=== PATIENT | male | born 1935 | race Caucasian/White ===

== ENCOUNTER 2019-02-10 11:25 | Inpatient (IN) | payer MEDICARE ==
[2019-02-10] MEDS ORDERED: Atropine Sulfate 1 mg/10 ml Syringe ONE (11:31)
--- NOTE | 2019-02-10 11:47 | RAD ---
EXAM: Single view of the chest HISTORY: Chest pain COMPARISON: None FINDINGS: Single view of the chest shows a normal sized cardiomediastinal silhouette. There is eleva tion of the right hemidiaphragm. Atherosclerotic calcifications are seen in the aorta. There is no evidence of consolidation, mass, or pleural effusion. The patient has bilateral shoulder arthroplasti es. IMPRESSION: No evidence of acute cardiopulmonary disease
[2019-02-10] MEDS ORDERED: Meclizine HCl 25 MG TAB ONE (11:48)
[2019-02-10] MEDS ORDERED: DOPamine 400 MG/D5W 250 ML 250 ML IVPB SCH (12:00)
[2019-02-10 12:04] LABS: #Eosinphils 0.2 thou/uL (0.0-0.7); #Lymphocytes 0.4 thou/uL (1.20-3.40); #Monocytes 0.3 thou/uL (0.11-0.59); #Neutrophils 2.3 thou/uL (1.40-6.50); %Basophils 0.2 % (0.0-1.0); %Eosinophils 5.6 % (0.0-10.0); %Monocytes 10.1 % (0.0-10.0); %Neutrophils 71.1 % (42.0-75.0); Hemoglobin 7.7 g/dL (14.0-18.0); Mean Corpuscular HGB CONC 31.3 g/dL (32.0-36.0); Mean Corpuscular Hemoglobin 24.5 pg (27.0-31.0); Mean Corpuscular Volume 78.1 fL (78.0-98.0); Mean Platelet Volume 8.6 fL (7.4-10.4); Platelet Count 131 thou/uL (130-400); RBC Distribution Width 15.9 % (11.5-14.5); Red Blood Cell (RBC) Count 3.15 mill/uL (4.70-6.10); White Blood Cell (WBC) Count 3.2 thou/uL (4.8-10.8)
[2019-02-10 12:27] LABS: Acetaminophen Less than 6.0 mcg/mL (10.0-30.0); Alcohol Less than 10 mg/dL (Less than 10); Salicylate Less than 8.0 mg/dL (15.0-30.0)
[2019-02-10 12:28] LABS: ALT (SGPT) 19 U/L (8-55); AST (SGOT) 28 U/L (5-34); Albumin 3.4 g/dL (3.4-4.8); Alkaline Phosphatase 88 U/L (40-150); Anion Gap 12 mmol/L (10-20); BUN (Urea Nitrogen) 25 mg/dL (8.4-25.7); Bilirubin, Total 0.4 mg/dL (0.2-1.2); Calc. Creatinine Clearance 0 mL/min (70-130); Calcium 9.8 mg/dL (7.8-10.44); Carbon Dioxide 26 mmol/L (23-31); Chloride 100 mmol/L (98-107); Estimated GFR-MDRD 37; Globulin 3.7 g/dL (2.4-3.5); Glucose 148 mg/dL (83-110); Protein, Total 7.1 g/dL (5.8-8.1); Sodium 133 mmol/L (136-145)
[2019-02-10 12:50] LABS: CKMB 2.8 ng/mL (0-6.6)
[2019-02-10] MEDS ORDERED: DOPamine 400 MG/D5W 250 ML 250 ML ONE (13:08)
[2019-02-10 13:09] LABS: INR-International Normal Ratio 1.1; PTT 29.3 SEC (22.9-36.1); Prothrombin Time 14.5 SEC (12.0-14.7)
--- NOTE | 2019-02-10 16:00 | PDOC.FPRHP ---
- History of Present Illness Chief Complaint: Dizziness History of Present Illness: This is an 83 yo male with a pmh of chronic atrial fibrillation, MDD, HTN, hypothyroidism, CKD III, rheumatic fever with heart murmur, COPD, Hepatitis C with a cc of dizziness who presents from correction. He states that has been dizzy for . He reports feeling dizzy this morning and checked his HR and found that it was in the 40s he denies having a heart rate like this before. In addition, he reports an associated SOB that has been going on for the last few weeks. He denies falling, LOC, nausea, vomiting, or chest pain. He reports just moving from [place] and states that he was receiving chemo and radiation for throat cancer. ED Course: aspirin, meclizine 25mg, 1L ns, Atropine 2 mg - Allergies/Adverse Reactions Allergies Allergy/AdvReac Type Severity Reaction Status Date / Time No Known Allergies Allergy Unverified 02/10/19 11:49 - Home Medications Medication Instructions Recorded Confirmed Type Albuterol Sulfate [Albuterol 2.5 mg NEB Q6H PRN 02/10/19 02/10/19 History Sulfate Neb] Allopurinol 100 mg PO DAILY 02/10/19 02/10/19 History Amiodarone [Cordarone] 200 mg PO DAILY 02/10/19 02/10/19 History Atorvastatin Calcium 20 mg PO DAILY 02/10/19 02/10/19 History Finasteride 5 mg PO DAILY 02/10/19 02/10/19 History Furosemide 40 mg PO DAILY 02/10/19 02/10/19 History Levothyroxine Sodium 75 mcg PO DAILY 02/10/19 02/10/19 History Polyethylene Glycol 3350 [Miralax] 17 gm PO DAILY 02/10/19 02/10/19 History Tamsulosin HCl 0.4 mg PO HS 02/10/19 02/10/19 History traMADol HCl [Tramadol HCl] 50 mg PO Q6HR 02/10/19 02/10/19 History - History PMHx: chronic atrial fibrillation, MDD, HTN, hypothyroidism, CKD III, rheumatic fever with heart murmur, COPD, Hepatitis C, throat cancer s/p radiation PSHx: Shoulder surgery FHx: Noncontributory Social: Denies JORDAN - Review of Systems General: reports: fatigue. denies: fever/chills, weight/appetite/sleep changes , night sweats Eyes: reports: other (double vision, chronic). denies: eye pain, vision changes ENT: reports: nasal congestion, rhinorrhea Respiratory: reports: shortness of breath, exercise intolerance. denies: cough , congestion Cardiovascular: denies: chest pain, palpitation, edema, orthopnea Gastrointestinal: reports: constipation. denies: nausea, vomiting, diarrhea, abdominal pain, GI bleeding Genitourinary: reports: other (7x nocturia). denies: incontinence, dysuria Skin: denies: rashes, lesions Musculoskeletal: reports: pain (back), arthritis/arthralgias (shoulders) Neurological: reports: weakness. denies: numbness, syncope, seizure Psychological: denies: anxiety, depression - Vital signs BP: 163/59 HR: 47 RR: 13 Tmax: 97.5 Pox: 100% on ra Wt: 72 kg - Physical Exam Constitutional: NAD, awake, alert and oriented, well developed HEENT: normocephalic and atraumatic, PERRLA, EOMI, MMM, other (poor dentition) Neck: supple, FROM, trachea midline, no JVD, no bruits Chest: no-tender to palpation, no lesions Heart: normal S1/S2 -Heart: Regular rhythm, bradycardic, systolic murmur best heard at the right sternal border Lungs: no respiratory distress, good air movement, no wheezing -Lungs: Basilar crackles bilaterally Abdomen: soft, non-tender, bowel sounds present, no masses/distention Musculoskeletal: normal structure, normal tone, ROM grossly normal Neurological: CN II-XII intact Skin: capillary refill <2 seconds, no jaundice Heme/Lymphatic: no unusual bruising or bleeding, no purpura Psychiatric: normal mood and affect, good judgment and insight FMR H&P: Results - Labs Result Diagrams: 02/10/19 11:49 02/10/19 11:49 Lab results: WBC 3.2 thou/uL (4.8-10.8) L 02/10/19 11:49 Hgb 7.7 g/dL (14.0-18.0) L 02/10/19 11:49 Hct 24.6 % (42.0-52.0) L 02/10/19 11:49 MCV 78.1 fL (78.0-98.0) 02/10/19 11:49 Plt Count 131 thou/uL (130-400) 02/10/19 11:49 Neutrophils % 71.1 % (42.0-75.0) 02/10/19 11:49 Sodium 133 mmol/L (136-145) L 02/10/19 11:49 Potassium 5.0 mmol/L (3.5-5.1) 02/10/19 11:49 Chloride 100 mmol/L (98-107) 02/10/19 11:49 Carbon Dioxide 26 mmol/L (23-31) 02/10/19 11:49 BUN 25 mg/dL (8.4-25.7) 02/10/19 11:49 Creatinine 1.78 mg/dL (0.7-1.3) H 02/10/19 11:49 Glucose 148 mg/dL (83-110) H 02/10/19 11:49 Calcium 9.8 mg/dL (7.8-10.44) 02/10/19 11:49 Total Bilirubin 0.4 mg/dL (0.2-1.2) 02/10/19 11:49 AST 28 U/L (5-34) 02/10/19 11:49 ALT 19 U/L (8-55) 02/10/19 11:49 Alkaline Phosphatase 88 U/L (40-150) 02/10/19 11:49 CK-MB (CK-2) 2.8 ng/mL (0-6.6) 02/10/19 11:49 B-Natriuretic Peptide 1149.8 pg/mL (0-100) H 02/10/19 11:49 Serum Total Protein 7.1 g/dL (5.8-8.1) 02/10/19 11:49 Albumin 3.4 g/dL (3.4-4.8) 02/10/19 11:49 - Radiology Interpretation Chest x-ray Status: report reviewed by me (No evidence of acute cardiopulmonary disease) FMR H&P: A/P - Problem List (1) COPD (chronic obstructive pulmonary disease) Current Visit: Yes Status: Acute (2) CKD (chronic kidney disease) Current Visit: Yes Status: Acute Code(s): N18.9 - CHRONIC KIDNEY DISEASE, UNSPECIFIED (3) HTN (hypertension) Current Visit: Yes Status: Acute Code(s): I10 - ESSENTIAL (PRIMARY) HYPERTENSION (4) MDD (major depressive disorder) Current Visit: Yes Status: Acute Code(s): F32.9 - MAJOR DEPRESSIVE DISORDER , SINGLE EPISODE, UNSPECIFIED (5) Bradycardia Current Visit: Yes Status: Acute Code(s): R00.1 - BRADYCARDIA, UNSPECIFIED - Plan This is a 83 yo male with a pmh of chronic atrial fibrillation, MDD, HTN, hypothyroidism, CKD III, rheumatic fever with heart murmur, COPD, Hepatitis C Bradycardia likely 2/2 sick sinus syndrome -Admit to tele obs -s/p 2mg of atropine -Echo in the morning -Consult cardiology in the morning SOB, presumptive aortic stenosis -Echo in the morning -Cardiology consult CHF, unspecified -Echo -Continue home meds COPD -Does not appear to be exacerbated -continue home meds Afib -Continue home amiodarone CKD 3 -Cr 1.78 -Appears at baseline from previous Cr of 1.7 Asymptomatic anemia -Hgb 7.7 -FOBT negative -Repeat in AM HTN -No current medications Hx of throat cancer -No dysphagia Hep C -Uncertain current status, pending more clinical information in the mornin -Consider Hep C labs BPH -Continue home meds, post void residual and straight cath as needed Code: DNAR Prophylaxis: SCDs Family: none at bedside Diet: HH Fluids: SL Disposition: DC in 2-3 days PCP: Dr. Odom FMR H&P: Upper Level - Pertinent history Pt is an 83 y/o M. CC Dizziness from correction. Started this AM. Associated SOB this morning during radiology. Denies chest pain, but admits to SOB "all the time". States he feels better now and is not dizzy. Is undergoing radiation for throat cancer and has been doing it for 1 year. - Plan Date/Time: 02/10/19 3027 IFarhan, have evaluated this patient and agree with findings/plan as outlined by analysis internship resident. Pertinent changes/additions are listed here. # Dizziness- Possibly 2/2 anemia vs valvular disease vs bradycardia or all contributing. Will eval with ECHO and transfuse PRN for Hb<7.0. # Bradycardia- Does have a history of bradycardia, but no pacemaker. # Pancytopenia- Likely immunocompromised from radiation. no hx/o Chemotherapy. # Hypothyroidism- On 75mcg of synthroid, but has likely not been taking medications. # Throat Cancer- Undergoing radiation. # Cardiac Valvular Disease- Has been told he needs valve replacement, but we do not have records or know which valve. Hx/o Rheumatic fever. # Elevated Troponins- Presumed 2/2 demand given range. No CP, will continue to trend. # Hyponatremia- S/p 1L NS, will follow. # Elevated Cr- Acute vs Chronic disease. Continue to trend. # Urinary Retention- Straight catha dn Cotto as necessary. Code Status: DNAR Addendum - Attending - Attending Attestation Date/Time: 02/10/19 1009 I personally evaluated the patient and discussed the management with Dr. Gan /Elisa I agree with the History, Examination, Assessment and Plan documented above with any addition or exceptions noted below. Patient with presyncopal symptoms found with bradycardia, anemia and severe hypothyroidism. Patient was living independantly in [facility] until Jun 2018 DX with throat Carcinoma and started receiving XRT therapy was placed in Rehab in [facility] and currently states living with Daughter in [place], [place]. Care plan discussed in detail as above per Residents
[2019-02-10] MEDS ORDERED: Aspirin 325 MG TAB ONE (16:03)
[2019-02-10 17:26] LABS: Troponin I 0.019 ng/mL (< 0.028)
[2019-02-10] MEDS ORDERED: Ondansetron PF 4 MG/2 ML Vial IVP PRN (18:43)
[2019-02-10] MEDS ORDERED: Acetaminophen 325 MG TAB PO PRN ×2 (18:43→19:05)
[2019-02-10] MEDS ORDERED: Ondansetron ODT 4 MG TAB SL PRN (18:43)
[2019-02-10] MEDS ORDERED: Albuterol Sulfate 2.5 mg/3 ml Neb NEB PRN (18:48)
[2019-02-10] MEDS ORDERED: Ondansetron ODT 4 MG TAB PO PRN (19:05)
[2019-02-10 20:03] LABS: Troponin I 0.021 ng/mL (< 0.028)
[2019-02-10 21:28] VITALS: BMI 25.0
[2019-02-10] MEDS: Senokot S 8.6-50 MG TAB PO SCH (21:47)
[2019-02-10] MEDS: Tamsulosin HCl 0.4 MG CAP PO SCH (21:48)
[2019-02-10] MEDS ORDERED: traMADol HCl 50 MG TAB PO PRN (23:59)
[2019-02-11 05:34] LABS: Anion Gap 6 mmol/L (10-20); BUN (Urea Nitrogen) 24 mg/dL (8.4-25.7); Calc. Creatinine Clearance 39 mL/min (70-130); Calcium 9.4 mg/dL (7.8-10.44); Carbon Dioxide 26 mmol/L (23-31); Chloride 104 mmol/L (98-107); Estimated GFR-MDRD 42; Glucose 148 mg/dL (83-110); Sodium 131 mmol/L (136-145)
[2019-02-11] MEDS: Levothyroxine Sodium 75 MCG TAB PO SCH (05:36)
[2019-02-11 06:18] LABS: #Eosinphils 0.2 thou/uL (0.0-0.7); #Lymphocytes 0.4 thou/uL (1.20-3.40); #Monocytes 0.3 thou/uL (0.11-0.59); #Neutrophils 2.2 thou/uL (1.40-6.50); %Basophils 0.3 % (0.0-1.0); %Eosinophils 6.5 % (0.0-10.0); %Lymphocytes 11.7 % (21.0-51.0); %Monocytes 9.9 % (0.0-10.0); %Neutrophils 71.7 % (42.0-75.0); Mean Corpuscular HGB CONC 31.1 g/dL (32.0-36.0); Mean Corpuscular Hemoglobin 24.6 pg (27.0-31.0); Mean Corpuscular Volume 79.2 fL (78.0-98.0); Mean Platelet Volume 8.9 fL (7.4-10.4); Platelet Count 119 thou/uL (130-400); Platelet Morphology Comment Appears Decreased; RBC Distribution Width 15.8 % (11.5-14.5); Red Blood Cell (RBC) Count 2.84 mill/uL (4.70-6.10)
--- NOTE | 2019-02-11 06:48 | PDOC.FM ---
- Subjective Subjective: Pt reports improved symptoms overnight. He denies chest pain and improving SOB. He denies dizziness or lightheadedness with standing but has not walked around since he has been here. - Objective MAR Reviewed: Yes Vital Signs & Weight: Vital Signs (12 hours) Temp Pulse Resp BP Pulse Ox 02/11/19 03:09 97.6 F 51 L 18 161/72 H 95 02/10/19 19:30 97.8 F 50 L 18 159/71 H 95 02/10/19 19:05 95 Weight Weight 74.644 kg Result Diagrams: 02/11/19 04:15 02/11/19 04:15 Phys Exam - Physical Examination Constitutional: NAD HEENT: moist MMs Neck: no JVD Respiratory: no wheezing, clear to auscultation bilateral Bradycardia, 3/6 systolic murmur at right sternal border Gastrointestinal: soft, non-tender, no distention, positive bowel sounds Musculoskeletal: no edema, pulses present Neurological: moves all 4 limbs Psychiatric: A&O x 3 Skin: cap refill <2 seconds Dx/Plan (1) COPD (chronic obstructive pulmonary disease) Status: Acute (2) CKD (chronic kidney disease) Code(s): N18.9 - CHRONIC KIDNEY DISEASE, UNSPECIFIED Status: Acute (3) HTN (hypertension) Code(s): I10 - ESSENTIAL (PRIMARY) HYPERTENSION Status: Acute (4) MDD (major depressive disorder) Code(s): F32.9 - MAJOR DEPRESSIVE DISORDER, SINGLE EPISODE, UNSPECIFIED Status : Acute (5) Bradycardia Code(s): R00.1 - BRADYCARDIA, UNSPECIFIED Status: Acute - Plan Plan: This is a 83 yo male with a pmh of chronic atrial fibrillation, MDD, HTN, hypothyroidism, CKD III, rheumatic fever with heart murmur, COPD, Hepatitis C Bradycardia likely 2/2 sick sinus syndrome -s/p 2mg of atropine -Stable HR overnight -Echo this morning -Consult cardiology today SOB, presumptive aortic stenosis -Echo this morning -Cardiology consult CHF, unspecified -Echo -Continue home meds -BNP 1149.8 COPD -Does not appear to be exacerbated -continue home meds Afib -Continue home amiodarone CKD 3 -Cr 1.78 -Appears at baseline from previous Cr of 1.7 Asymptomatic anemia -Hgb 7.7 -FOBT negative -7.0 this morning, consider transfusion if any lower -Appears asymptomatic this morning HTN -No current medications Hx of throat cancer -No dysphagia Hep C -Uncertain current status, pending more clinical information in the morning -Consider Hep C labs BPH -Continue home meds, post void residual and straight cath as needed Addendum - Attending - Attending Attestation Date/Time: 02/11/19 6168 I personally evaluated the patient and discussed the management with Dr. Gan I agree with the History, Examination, Assessment and Plan documented above with any addition or exceptions noted below. Patient for echocardiogram and cardiac consultation today.
[2019-02-11] MEDS: Atorvastatin Calcium 20 MG TAB PO SCH (08:56)
[2019-02-11] MEDS: Finasteride 5 MG TAB PO SCH (08:56)
[2019-02-11] MEDS: Allopurinol 100 MG TAB PO SCH (08:56)
[2019-02-11] MEDS: Amiodarone 200 MG TAB PO SCH (08:56)
[2019-02-11] MEDS: Furosemide 40 MG TAB PO SCH (08:56)
[2019-02-11] MEDS: Senokot S 8.6-50 MG TAB PO SCH ×2 (08:57→21:11)
[2019-02-11] MEDS: Polyethylene Glycol 3350 17 GM Packet PO SCH (08:57)
[2019-02-11] MEDS: Tamsulosin HCl 0.4 MG CAP PO SCH (21:12)
[2019-02-12] MEDS: Levothyroxine Sodium 75 MCG TAB PO SCH (04:57)
--- NOTE | 2019-02-12 06:17 | PDOC.FM ---
- Subjective Subjective: Pt states he was up walking yesterday without dizziness, lightheadedness, presyncope, or chest pain. Pt continues to report no other symptoms. - Objective MAR Reviewed: Yes Vital Signs & Weight: Vital Signs (12 hours) Temp Pulse Resp BP Pulse Ox 02/12/19 03:01 97.7 F 51 L 20 126/58 L 95 02/11/19 19:30 97.5 F L 54 L 16 116/56 L 96 Weight Weight 72.212 kg I&O: 02/10/19 02/11/19 02/12/19 06:59 06:59 06:59 Intake Total 300 1370 Output Total 600 400 Balance -300 970 Result Diagrams: 02/12/19 11:39 02/11/19 04:15 Phys Exam - Physical Examination Constitutional: NAD HEENT: moist MMs Neck: no JVD Respiratory: no wheezing, clear to auscultation bilateral Cardiovascular: RRR, no rub 3/6 systolic murmur Gastrointestinal: soft, non-tender, no distention, positive bowel sounds Musculoskeletal: no edema, pulses present Neurological: moves all 4 limbs Psychiatric: A&O x 3 Skin: cap refill <2 seconds Dx/Plan (1) COPD (chronic obstructive pulmonary disease) Status: Acute (2) CKD (chronic kidney disease) Code(s): N18.9 - CHRONIC KIDNEY DISEASE, UNSPECIFIED Status: Acute (3) HTN (hypertension) Code(s): I10 - ESSENTIAL (PRIMARY) HYPERTENSION Status: Acute (4) MDD (major depressive disorder) Code(s): F32.9 - MAJOR DEPRESSIVE DISORDER, SINGLE EPISODE, UNSPECIFIED Status : Acute (5) Bradycardia Code(s): R00.1 - BRADYCARDIA, UNSPECIFIED Status: Acute - Plan Plan: This is a 83 yo male with a pmh of chronic atrial fibrillation, MDD, HTN, hypothyroidism, CKD III, rheumatic fever with heart murmur, COPD, Hepatitis C Bradycardia likely 2/2 sick sinus syndrome -s/p 2mg of atropine -Stable HR overnight -Echo shows EF 55-60 percent, grade 1/3 diastolic dysfunction, moderately dilated left atrium, heavily calcified aortic valve with decreased opening -Consult cardiology SOB, presumptive aortic stenosis -Echo as above -Cardiology consult CHF, HFpEF -Echo -Continue home meds -BNP 1149.8 COPD -Does not appear to be exacerbated -continue home meds Afib -Continue home amiodarone CKD 3 -Cr 1.78 -Appears at baseline from previous Cr of 1.7 Asymptomatic anemia -Hgb 7.7 -FOBT negative -7.0 this morning, consider transfusion if any lower -Appears asymptomatic this morning HTN -No current medications Hx of throat cancer -No dysphagia Hep C -Uncertain current status, pending more clinical information in the morning -Consider Hep C labs BPH -Continue home meds, post void residual and straight cath as needed Addendum - Attending - Attending Attestation Date/Time: 02/12/19 2830 I personally evaluated the patient and discussed the management with Dr. Gan I agree with the History, Examination, Assessment and Plan documented above with any addition or exceptions noted below.Appreciate Cardiology recommendation. Anemia pancytopenic with normocytic indices in setting of throat CA will investigate further continue to trend and transfuse prn.
[2019-02-12 06:41] LABS: Hemoglobin 7.2 g/dL (14.0-18.0); Platelet Count 108 thou/uL (130-400)
[2019-02-12] MEDS: Allopurinol 100 MG TAB PO SCH (08:26)
[2019-02-12] MEDS: Finasteride 5 MG TAB PO SCH (08:26)
[2019-02-12] MEDS: Senokot S 8.6-50 MG TAB PO SCH ×2 (08:26→21:17)
[2019-02-12] MEDS: Atorvastatin Calcium 20 MG TAB PO SCH (08:26)
[2019-02-12] MEDS: Polyethylene Glycol 3350 17 GM Packet PO SCH (08:27)
[2019-02-12] MEDS: Furosemide 40 MG TAB PO SCH (08:27)
[2019-02-12] MEDS: Amiodarone 200 MG TAB PO SCH (08:27)
--- NOTE | 2019-02-12 10:14 | CON ---
DATE OF CONSULTATION: 02/12/2019 REASON FOR CONSULTATION: Bradycardia. HISTORY OF PRESENT ILLNESS: Mr. Cortez is a pleasant 83-year-old white gentleman, who comes to the hospital for dizziness. He felt dizzy in the morning yesterday, checked his blood pressure which was fine, but his heart rate was in the 40s, which he had never noticed before, so he decided to come in for evaluation. He has also noticed worsening shortness of breath in the last few weeks. Denies syncope, presyncope, nausea, or vomiting. He has been constipated. He was actually given some laxative last night and actually now has diarrhea. He had recently moved from [place] and had been receiving chemo and radiation for throat cancer. PAST MEDICAL HISTORY: 1. Paroxysmal atrial fibrillation. 2. Major depressive disorder. 3. Hypertension. 4. Hypothyroidism. 5. CKD stage 3. 6. Rheumatic fever with heart murmur. 7. COPD. 8. Hepatitis C. 9. Throat cancer, status post chemo and radiation. PAST SURGICAL HISTORY: shoulder surgery. FAMILY HISTORY: No early coronary artery disease. SOCIAL HISTORY: No alcohol, tobacco, or drugs. REVIEW OF SYSTEMS: Twelve-point review of systems was done and was all negative unless stated in the history of present illness. OUTPATIENT MEDICATIONS: Include: 1. Albuterol inhaler. 2. Allopurinol. 3. Amiodarone 200 mg a day. 4. Atorvastatin 20 mg a day. 5. Finasteride. 6. Furosemide 40 mg a day. 7. Levothyroxine 75 mcg a day. 8. MiraLAX p.r.n. 9. Tamsulosin. 10. Tramadol p.r.n. ALLERGIES: NO KNOWN DRUG ALLERGIES. PHYSICAL EXAMINATION: VITAL SIGNS: Temperature 98.3, pulse anywhere from 41. He is sleeping mid 40s up to the 60s when he is up, respiratory rate 20, sat 95% on room air, and blood pressure 126/58. GENERAL: Awake, alert, and oriented x3, in no distress. HEENT: Normocephalic and atraumatic. NECK: Supple. LUNGS: Clear. CARDIOVASCULAR: S1 and S2. No S3 or S4. There is a grade 3/6 systolic murmur at the right upper sternal border. ABDOMEN: Soft. Positive bowel sounds. EXTREMITIES: No edema. SKIN: Warm and dry. LABORATORY DATA: Laboratory work was reviewed. CBC with a white count of 3.2, hemoglobin on admission was 7.9, and his trickled down to 7.0. His hemoglobin back in September of this year was 11.2, so this is a significant change. Coags were normal. Chemistries were unremarkable except for creatinine 1.78 down to 1.58 now. Troponin was intermittent 0.03, 0.01, and 0.02 and BNP 1149. Albumin of 3.4. Toxicology, salicylate, acetaminophen, plasma alcohol were all undetectable. EKG was reviewed, sinus bradycardia. Echocardiogram was reviewed. Normal LV function, 55% to 60% with mild aortic valve stenosis and moderate regurgitation. RVSP was elevated at 41 mmHg. ASSESSMENT: 1. Dizziness. 2. Anemia. 3. Paroxysmal atrial fibrillation. 4. Sinus bradycardia. PLAN: We would definitely stop amiodarone at this point as his bradycardia is close to being very significant. My feeling is that most likely his episode of dizziness and worsening shortness of breath in the last few days has been related to his anemia. We would work this out first. Echocardiogram shows no significant aortic valve stenosis and normal LV function. We would stay away from any anticoagulation right now as I do not know if he is bleeding from or not. I agree with continuation of his home medications except for stopping amiodarone. Thank you for letting us to participate in the care of your patient. We will follow. Job ID: [id number]
--- NOTE | 2019-02-12 11:10 | EKG ---
Test Reason : Blood Pressure : / mmHG Vent. Rate : 042 BPM Atrial Rate : 042 BPM P-R Int : 206 ms QRS Dur : 094 ms QT Int : 532 ms P-R-T Axes : 000 -14 -74 degrees QTc Int : 444 ms Marked sinus bradycardia Nonspecific T wave abnormality Abnormal ECG Confirmed by DR. Nik LEVINE ([id number]) on 02/12/2019 11:10:32 AM Referred By: Confirmed By:DR. Nik LEVINE
[2019-02-12 12:05] LABS: Reticulocyte Count 1.8 % (0.5-1.5)
[2019-02-12 12:18] LABS: Iron 22 ug/dL (65-175); Iron Binding Capacity, Total 361 mcg/dL (261-462)
[2019-02-12 12:38] LABS: Ferritin 17.2 ng/mL (22-322); Free T4 (Free Thyroxine) 0.97 ng/dL (0.70-1.48)
[2019-02-12 13:00] LABS: Band 12 % (5-11); Eosinophils 4 % (0-10); Hypochromia MODERATE=16-30 cells (100X) (0-5/hpf); Lymphocytes 11 % (21-51); MDiff Complete? YES; Mean Corpuscular HGB CONC 31.1 g/dL (32.0-36.0); Mean Corpuscular Hemoglobin 24.9 pg (27.0-31.0); Mean Platelet Volume 8.5 fL (7.4-10.4); Monocytes 8 % (0-10); Neutrophil 65 % (42-75); Ovalocytes SLIGHT = 2-5 cells (100X) (0-1/hpf); Platelet Count 117 thou/uL (130-400); Platelet Morphology Comment Appears Decreased; Polychromasia SLIGHT = 2-3 cells (100X) (0-2/hpf); Red Blood Cell (RBC) Count 2.81 mill/uL (4.70-6.10); Reflex for Review?? NO; White Blood Cell (WBC) Count 3.6 thou/uL (4.8-10.8)
[2019-02-12] MEDS: Tamsulosin HCl 0.4 MG CAP PO SCH (21:18)
[2019-02-13] MEDS: Levothyroxine Sodium 75 MCG TAB PO SCH (05:43)
--- NOTE | 2019-02-13 06:39 | PDOC.FM ---
- Subjective Subjective: Denies dizziness overnight. He denies chest pain, SOB, nausea, or vomiting. - Objective MAR Reviewed: Yes Vital Signs & Weight: Vital Signs (12 hours) Temp Pulse Resp BP Pulse Ox 02/13/19 03:30 97.2 F L 51 L 17 156/65 H 99 02/12/19 19:30 97.4 F L 54 L 16 137/71 96 Weight Weight 70.579 kg I&O: 02/11/19 02/12/19 02/13/19 06:59 06:59 06:59 Intake Total 300 1370 1290 Output Total 721 165 9859 Balance -300 970 30 Result Diagrams: 02/13/19 06:43 02/11/19 04:15 Phys Exam - Physical Examination Constitutional: NAD HEENT: moist MMs Neck: no JVD Respiratory: no wheezing, clear to auscultation bilateral Bradycardic, 3/6 systolic murmur Gastrointestinal: soft, non-tender, no distention, positive bowel sounds Musculoskeletal: no edema, pulses present Neurological: moves all 4 limbs Psychiatric: A&O x 3 Skin: cap refill <2 seconds Dx/Plan (1) COPD (chronic obstructive pulmonary disease) Status: Acute (2) CKD (chronic kidney disease) Code(s): N18.9 - CHRONIC KIDNEY DISEASE, UNSPECIFIED Status: Acute (3) HTN (hypertension) Code(s): I10 - ESSENTIAL (PRIMARY) HYPERTENSION Status: Acute (4) MDD (major depressive disorder) Code(s): F32.9 - MAJOR DEPRESSIVE DISORDER, SINGLE EPISODE, UNSPECIFIED Status : Acute (5) Bradycardia Code(s): R00.1 - BRADYCARDIA, UNSPECIFIED Status: Acute - Plan Plan: This is a 83 yo male with a pmh of chronic atrial fibrillation, MDD, HTN, hypothyroidism, CKD III, rheumatic fever with heart murmur, COPD, Hepatitis C Bradycardia likely 2/2 sick sinus syndrome -s/p 2mg of atropine -Stable HR overnight -Echo shows EF 55-60 percent, grade 1/3 diastolic dysfunction, moderately dilated left atrium, heavily calcified aortic valve with decreased opening -Consult cardiology, appreciate recommendations SOB, presumptive aortic stenosis -Echo as above -Cardiology consult CHF, HFpEF -Echo -Continue home meds -BNP 1149.8 COPD -Does not appear to be exacerbated -continue home meds Afib -DC home amiodarone, per cardiology CKD 3 -Cr 1.78 -Appears at baseline from previous Cr of 1.7 Asymptomatic anemia -Hgb 7.7 -FOBT negative -7.0 this morning, consider transfusion if any lower -Appears asymptomatic this morning -Iron studies consistent with iron deficiency anemia -B12 wnl -RBC folate pending -CBC smear pending -Reticulocyte index of 0.48 indicating hypoproliferation -Giving 2 u PRBCs with lasix chaser, likely discharge later today for outpt workup HTN -No current medications Hx of throat cancer -No dysphagia Hep C -Uncertain current status, pending more clinical information in the morning -Consider Hep C labs BPH -Continue home meds, post void residual and straight cath as needed Addendum - Attending - Attending Attestation Date/Time: 02/13/19 0051 I personally evaluated the patient and discussed the management with I agree with the History, Examination, Assessment and Plan documented above with any addition or exceptions noted below. Patient endorses black stools in past s/p colonoscopy 2017 [place] Exam was "nl" per Patient . Patient with pancytopenia Hgb has dropped below 7 would recommend transfusion and stable observation post transfusion for further outpatient evaluation for GI blood loss related anemia. However anemia pancytopenia so component probaly related to cancer Dx and treatments. Patient for increase synthroid dosage 100mcg first thing in am before other RXa nd rec f /u TSH in 6 weeks with PCP . Note offa miadarone now per Cardiology rec with bradycardia advise no ASA no NSAIDS pending GI evaluation. FOBT in hospital negative.
[2019-02-13 06:55] LABS: #Eosinphils 0.1 thou/uL (0.0-0.7); #Lymphocytes 0.4 thou/uL (1.20-3.40); #Monocytes 0.3 thou/uL (0.11-0.59); #Neutrophils 1.8 thou/uL (1.40-6.50); %Basophils 0.6 % (0.0-1.0); %Eosinophils 5.2 % (0.0-10.0); %Lymphocytes 16.3 % (21.0-51.0); %Monocytes 9.6 % (0.0-10.0); %Neutrophils 68.3 % (42.0-75.0); Hemoglobin 6.9 g/dL (14.0-18.0); Mean Corpuscular HGB CONC 30.8 g/dL (32.0-36.0); Mean Corpuscular Hemoglobin 24.5 pg (27.0-31.0); Mean Corpuscular Volume 79.6 fL (78.0-98.0); Mean Platelet Volume 8.3 fL (7.4-10.4); Platelet Count 92 thou/uL (130-400); White Blood Cell (WBC) Count 2.6 thou/uL (4.8-10.8)
[2019-02-13] MEDS: Allopurinol 100 MG TAB PO SCH (08:32)
[2019-02-13] MEDS: Finasteride 5 MG TAB PO SCH (08:32)
[2019-02-13] MEDS: Furosemide 40 MG TAB PO SCH (08:32)
[2019-02-13] MEDS: Atorvastatin Calcium 20 MG TAB PO SCH (08:33)
[2019-02-13] MEDS: Ferrous Sulfate 325 MG TAB PO SCH ×2 (08:33→16:27)
[2019-02-13] MEDS: Polyethylene Glycol 3350 17 GM Packet PO SCH (08:33)
[2019-02-13] MEDS: Senokot S 8.6-50 MG TAB PO SCH ×2 (08:33→20:53)
[2019-02-13] MEDS ORDERED: Furosemide 40 MG/4 ML VIAL SLOW IVP SCH (10:30)
--- NOTE | 2019-02-13 15:46 | PDOC.CTH ---
Cardiology Progress Note - Subjective He is feeling much much better as he is getting a unit of bleed. He states he feels like he is getting energy in a bag infused. No more bradycardia. Lightheadedness improved. - Objective Vital Signs Temp Pulse Pulse Resp BP BP BP 02/13/19 14:47 97.8 F 50 L 18 136/63 02/13/19 14:23 97.8 F 51 L 18 137/62 02/13/19 11:15 98.4 F 42 L 18 125/54 L 02/13/19 11:04 97.5 F L 49 L 18 132/59 L 02/13/19 08:35 02/13/19 07:18 97.6 F 50 L 18 125/60 Pulse Ox 02/13/19 14:47 02/13/19 14:23 95 02/13/19 11:15 95 02/13/19 11:04 96 02/13/19 08:35 95 02/13/19 07:18 95 Weight 155 lb 9.6 oz 02/12/19 02/13/19 02/14/19 06:59 06:59 06:59 Intake Total 1370 1290 350 Output Total 400 1260 Balance 970 30 350 - Physical Examination General/Neuro: alert & oriented x3, NAD Neck: no JVD present Lungs: unlabored respirations Heart: RRR Abdomen: NT/ND Extremities: other: (no edema) - Telemetry Telemetry Rhythm: NSR - Labs Result Diagrams: 02/13/19 06:43 02/11/19 04:15 Troponin/CKMB CK-MB (CK-2) 2.8 ng/mL (0-6.6) 02/10/19 11:49 Troponin I 0.021 ng/mL (< 0.028) 02/10/19 19:33 - Assessment/Plan 1. Symptomatic anemia 2. Sinus bradycardia. 3. Paroxysmal afib 4. HTN 5. COPD 6. Hep C. 7. throat cancer s/p chemo. PLAN: - Symptoms improved with blood transfusion. - Continue to stay away from amiodarone for now to avoid bradycardia. - No indication for PPM. - Will sign off. please call with any questions.
[2019-02-13] MEDS: Tamsulosin HCl 0.4 MG CAP PO SCH (20:53)
[2019-02-13 21:58] LABS: Hemoglobin 9.2 g/dL (14.0-18.0); Mean Corpuscular HGB CONC 31.5 g/dL (32.0-36.0); Mean Corpuscular Hemoglobin 25.1 pg (27.0-31.0); Mean Corpuscular Volume 79.9 fL (78.0-98.0); Mean Platelet Volume 8.6 fL (7.4-10.4); Platelet Count 106 thou/uL (130-400); RBC Distribution Width 16.3 % (11.5-14.5); Red Blood Cell (RBC) Count 3.65 mill/uL (4.70-6.10); White Blood Cell (WBC) Count 3.8 thou/uL (4.8-10.8)
[2019-02-14] MEDS ORDERED: Levothyroxine Sodium 100 MCG TAB PO SCH (06:00)
--- NOTE | 2019-02-14 08:10 | PDOC.FM ---
- Subjective Subjective: pt resting comfortably in his chair. no SOB, dizziness, or chest pain - Objective Vital Signs & Weight: Vital Signs (12 hours) Temp Pulse Resp BP BP Pulse Ox 02/14/19 07:39 97.7 F 51 L 18 128/58 L 96 02/14/19 04:28 98.5 F 52 L 18 161/69 H 96 Weight Weight 71.441 kg I&O: 02/13/19 02/14/19 02/15/19 06:59 06:59 06:59 Intake Total 1290 2540 Output Total 1260 2620 Balance 30 -80 Result Diagrams: 02/13/19 21:47 02/11/19 04:15 Phys Exam - Physical Examination Constitutional: NAD HEENT: moist MMs Neck: no nodes Respiratory: clear to auscultation bilateral Cardiovascular: RRR, no significant murmur Gastrointestinal: soft Musculoskeletal: no edema Neurological: moves all 4 limbs Psychiatric: normal affect Skin: no rash Dx/Plan (1) Bradycardia Code(s): R00.1 - BRADYCARDIA, UNSPECIFIED Status: Acute (2) CKD (chronic kidney disease) Code(s): N18.9 - CHRONIC KIDNEY DISEASE, UNSPECIFIED Status: Acute (3) COPD (chronic obstructive pulmonary disease) Status: Acute (4) HTN (hypertension) Code(s): I10 - ESSENTIAL (PRIMARY) HYPERTENSION Status: Acute (5) MDD (major depressive disorder) Code(s): F32.9 - MAJOR DEPRESSIVE DISORDER, SINGLE EPISODE, UNSPECIFIED Status : Acute - Plan Plan: Bradycardia likely 2/2 sick sinus syndrome -s/p 2mg of atropine -Stable HR overnight -Echo shows EF 55-60 percent, grade 1/3 diastolic dysfunction, moderately dilated left atrium, heavily calcified aortic valve with decreased opening -Consult cardiology, appreciate recommendations SOB, presumptive aortic stenosis -Echo as above -Cardiology consult CHF, HFpEF -Echo as above -Continue home meds -BNP 1149.8 COPD -Does not appear to be exacerbated -continue home meds Afib -DC home amiodarone, per cardiology CKD 3 -Cr 1.78 -Appears at baseline from previous Cr of 1.7 Asymptomatic anemia -Hgb 7.7 -FOBT negative -Appears asymptomatic this morning, improved Hb -Iron studies consistent with iron deficiency anemia -B12 wnl -RBC folate pending -CBC smear pending -Reticulocyte index of 0.48 indicating hypoproliferation -Giving 2 u PRBCs with lasix chaser, likely discharge later today for outpt workup HTN -No current medications Hx of throat cancer -No dysphagia Hep C -Uncertain current status, pending more clinical information in the morning -Consider Hep C labs BPH -Continue home meds, post void residual and straight cath as needed dispo: DC today
[2019-02-14] MEDS: Allopurinol 100 MG TAB PO SCH (09:02)
[2019-02-14] MEDS: Polyethylene Glycol 3350 17 GM Packet PO SCH (09:02)
[2019-02-14] MEDS: Furosemide 40 MG TAB PO SCH (09:02)
[2019-02-14] MEDS: Finasteride 5 MG TAB PO SCH (09:02)
[2019-02-14] MEDS: Atorvastatin Calcium 20 MG TAB PO SCH (09:02)
[2019-02-14] MEDS: Ferrous Sulfate 325 MG TAB PO SCH (09:02)
[2019-02-14] MEDS: Senokot S 8.6-50 MG TAB PO SCH (09:02)
[2019-02-14 12:02] VITALS: BP 124/60; TEMP 97.4
--- NOTE | 2019-02-14 14:46 | PRG ---
DATE OF SERVICE: Mr. Cortez was admitted with significant bradycardia initially felt to be possible sick sinus syndrome. However, since stopping his amiodarone per recommendations of Cardiology, his heart rate is now staying in the high 50s to 60s. His blood pressure is 124/60. This morning, he is happy, awake, alert, in no acute distress. He is also noted to have an iron-deficiency anemia and has transfused to a hemoglobin of 9.2 with hematocrit 29.1. His initial studies were consistent with iron deficiency anemia with an iron of 22, a TIBC of 361, and a ferritin of only 17. I am not certain of the extent of a GI workup if any, but this can be accomplished as an outpatient. He also has hepatitis C and has been advised to consider treatment with his PCP. He seems willing to do this. Job ID: [id number]
[2019-02-14 17:09] LABS: Folate,Hemolysate 297.9 ng/mL (Not Estab.); Hematocrit 22.2 % (37.5-51.0); RBC Folate Test Component 1342 ng/mL (>498)
--- NOTE | 2019-02-15 00:05 | DIS ---
DATE OF ADMISSION: 02/10/2019 DATE OF DISCHARGE: 02/14/2019 ADMITTING ATTENDING: Dr. Jesús Desouza. DISCHARGE ATTENDING: Dr. Mondragon. CONSULTS: Cardiology, Dr. Jonathan Berger. IMAGING STUDIES: Chest x-ray significant for no acute cardiopulmonary process. Echocardiogram significant for ejection fraction visually estimated at 55% to 60%, grade 1/3 diastolic dysfunction, moderately dilated left atrium, moderate aortic regurgitation, moderate mitral regurgitation, moderate tricuspid regurgitation. DISCHARGE MEDICATIONS: 1. MiraLAX 17 g p.o. daily. 2. Nebulized albuterol 2.5 mg nebulized q.6 hours p.r.n. 3. Finasteride 5 mg p.o. daily. 4. Allopurinol 100 mg p.o. daily. 5. Atorvastatin 20 mg p.o. daily. 6. Tramadol 50 mg p.o. q.6 hours. 7. Tamsulosin 0.4 mg p.o. at bedtime. 8. Furosemide 40 mg p.o. daily. 9. Ferrous sulfate 325 mg p.o. b.i.d. with meals. 10. Levothyroxine 100 mcg p.o. at 0600 hours. DISCONTINUED MEDICATIONS: 1. Levothyroxine 75 mcg p.o. daily. 2. Amiodarone 200 mg p.o. daily. PRIMARY DIAGNOSIS: Iatrogenic bradycardia. SECONDARY DIAGNOSES: 1. Shortness of breath, possibly secondary to presumptive aortic stenosis. 2. Heart failure with preserved ejection fraction, diastolic dysfunction. 3. Chronic obstructive pulmonary disease. 4. Atrial fibrillation. 5. Chronic kidney disease stage 3. 6. Asymptomatic anemia. 7. Hypertension. 8. History of throat cancer. 9. Hepatitis C. 10. BPH. HISTORY OF PRESENT ILLNESS/HOSPITAL COURSE: An 83-year-old male with past medical history of chronic atrial fibrillation, major depressive disorder, hypertension, hypothyroid, chronic kidney disease stage 3, rheumatic fever with heart murmur, COPD, and hepatitis C, chief complaint of dizziness, presenting from the assisted. He reports feeling dizzy since this morning and with reported low heart rate associated with shortness of breath and history of known hepatitis C. He denies any loss of consciousness, nausea, vomiting, or chest pain at time of admission. The patient was admitted to telemetry for close observation. Cardiology was consulted and echocardiogram was obtained. It was determined that the patient's symptomatic bradycardia was likely due to amiodarone, so that was discontinued. The patient was asymptomatic after that and tolerated p.o. well, was ambulating well with assistance and deemed stable from that standpoint to discharge back to assisted. The patient's PCP, Dr. Odom was contacted to coordinate outpatient evaluation and care of the patient's asymptomatic anemia including workup to possibly include colonoscopy and outpatient followup for treatment of the patient's hepatitis C. The patient was agreeable to this and understood that outpatient workup was required. DISCHARGE LOCATION: shelter facility. DIET: Heart healthy, low sodium. ACTIVITY: As tolerated. FOLLOWUP: Follow up with PCP, Dr. Odom in the next 7 days. Job ID: [id number]
== END 2019-02-14 15:30 | disposition home or self-care (01) | DRG 309 ==
LOC: ERS 11:25 → 2NO 18:30
PROVIDERS: ADMIT Family Medicine; ATTEND Family Medicine
PROC: 30233N1 Transfusion of Nonautologous Red Blood Cells into Peripheral Vein, Percutaneous Approach (ICD-10-PCS; principal; 2019-02-13)
DX: R00.1 Bradycardia, unspecified (principal); I13.0 Hypertensive heart and chronic kidney disease with heart failure and stage 1 through stage 4 chronic kidney disease, or unspecified chronic kidney disease; D61.818 Other pancytopenia; E87.1 Hypo-osmolality and hyponatremia; I50.32 Chronic diastolic (congestive) heart failure; Z66 Do not resuscitate; T46.2X5A Adverse effect of other antidysrhythmic drugs, initial encounter; I48.2 Chronic atrial fibrillation; D50.9 Iron deficiency anemia, unspecified; F32.9 Major depressive disorder, single episode, unspecified; E03.9 Hypothyroidism, unspecified; N18.3 Chronic kidney disease, stage 3 (moderate); J44.9 Chronic obstructive pulmonary disease, unspecified; B18.2 Chronic viral hepatitis C; N40.0 Benign prostatic hyperplasia without lower urinary tract symptoms; R33.9 Retention of urine, unspecified; M10.9 Gout, unspecified; D63.0 Anemia in neoplastic disease; I48.0 Paroxysmal atrial fibrillation; C32.9 Malignant neoplasm of larynx, unspecified; I35.0 Nonrheumatic aortic (valve) stenosis; Z79.899 Other long term (current) drug therapy
CPT/HCPCS: 36415; 36416; 36430; 71045; 80048; 80053; 80061; 80076; 80307; 82274; 82553; 82607; 82728; 82747; 83036; 83540; 83550; 83880; 84439; 84443; 84481; 84484; 85007; 85014; 85018; 85025; 85027; 85046; 85049; 85060; 85610; 85730; 86850; 86900; 86901; 87521; 93005; 93306; 96361; 96374; J0461; J1265; J1940; J8499; P9016